=== PATIENT | male | born 1935 | race Caucasian/White ===

== ENCOUNTER 2019-02-12 14:02 | Inpatient (IN) | payer MEDICARE ==
--- NOTE | 2019-02-12 14:21 | ED ---
General Adult HPI - General Chief complaint: Recheck/Abnormal Lab/Rx Stated complaint: Abn labs Time Seen by Provider: 02/12/19 14:02 Source: patient, EMS, RN notes reviewed, old records reviewed Mode of arrival: EMS - History of Present Illness Initial comments: This is an 83-year-old male with past medical history significant for coronary artery disease and 2 stents and history of congestive heart today. Patient went to [facility] because his legs are swollen at [facility] he left AMA the first day and came back today because he had to get some things done at home. Patient still complained of swelling to his legs they did a troponin and it was mildly elevated looked at the chest x-ray showed congestive heart failure so they transferred the patient to [facility]. Patient denies any chest pain today or in the previous few weeks. Patient denies any shortness of breath. Patient's main concern is a swelling in the legs and the fact that he c annot get his shoes on. Patient denies any fever chills or cough. Patient denies any palpitations. Review of Systems ROS Statement: Those systems with pertinent positive or pertinent negative responses have been documented in the HPI. ROS Other: All systems not noted in ROS Statement are negative. Past Medical History Past Medical History: Heart Failure History of Any Multi-Drug Resistant Organisms: None Reported Past Surgical History: Heart Catheterization With Stent, Tonsillectomy Additional Past Surgical History / Comment(s): heart cath with stents in 2007 Past Psychological History: No Psychological Hx Reported Smoking Status: Never smoker Past Alcohol Use History: None Reported Past Drug Use History: None Reported General Exam - General Exam Comments Initial Comments: GENERAL: Patient is well-developed and well-nourished. Patient is nontoxic and well- hydrated and is in mild distress. ENT: Neck is soft and supple. No significant lymphadenopathy is noted. Oropharynx is clear. Moist mucous membranes. Neck has full range of motion without eliciting any pain. EYES: The sclera were anicteric and conjunctiva were pink and moist. Extraocular movements were intact and pupils were equal round and reactive to light. Eyelids were unremarkable. PULMONARY: Unlabored respirations. Good breath sounds bilaterally. No audible rales rhonchi or wheezing was noted. CARDIOVASCULAR: Patient has an irregular heart rate. ABDOMEN: Soft and nontender with normal bowel sounds. No palpable organomegaly was noted. There is no palpable pulsatile mass. SKIN: Skin is clear with no lesions or rashes and otherwise unremarkable. NEUROLOGIC: Patient is alert and oriented x3. Cranial nerves II through XII are grossly intact. Motor and sensory are also intact. Normal speech, volume and content. Symmetrical smile. MUSCULOSKELETAL: Normal extremities with adequate strength and full range of motion. She has 2+ edema bilaterally LYMPHATICS: No significant lymphadenopathy is noted PSYCHIATRIC: Normal psychiatric evaluation. Course Vital Signs 02/12/19 14:03 Temperature 99.4 F Pulse Rate 90 Respiratory 19 Rate Blood Pressure 125/97 O2 Sat by Pulse 95 Oximetry Medical Decision Making - Medical Decision Making EKG shows sinus rhythm with multiple PVCs at a rate of 92 bpm MA interval is 174 QRS is 124 QT interval 44 QTC is 499. No ST segment elevation seen. Disposition Clinical Impression: Pulmonary edema, Elevated troponin Disposition: ADMITTED IP TO THIS HOSP Referrals: None,Stated [Primary Care Provider] - 1-2 days Time of Disposition: 14:35
[2019-02-12] MEDS ORDERED: ASPIRIN 325 MG TAB PO STA (14:35)
[2019-02-12] MEDS: FUROSEMIDE 10 MG/ML 4 ML VIAL IV SCH ×2 (14:53→20:25)
--- NOTE | 2019-02-12 15:24 | XR ---
EXAMINATION TYPE: XR chest 2V DATE OF EXAM: 02/12/2019 COMPARISON: NONE HISTORY: Difficulty breathing bilateral lower extremity swelling TECHNIQUE: Frontal and lateral views of the chest are obtained. FINDINGS: The heart is enlarged. Bibasilar increased density is present, coronary artery calcificati ons are noted. There is no evident pneumothorax. Probable calcified nodule in the left upper lobe. Ce ntral vascularity and interstitium are increased. There are overlying cardiac leads. IMPRESSION: Correlate for congestive heart failure. There may be basilar effusions and associated ed danilo versus atelectasis. Follow-up suggested
[2019-02-12 16:18] LABS: Albumin 3.9 g/dL (3.5-5.0); Calcium 9.3 mg/dL (8.4-10.2); Potassium 4.8 mmol/L (3.5-5.1); Total Bilirubin 1.4 mg/dL (0.2-1.3); Total Protein 7.4 g/dL (6.3-8.2)
--- NOTE | 2019-02-12 17:17 | P.HPIM ---
History of Present Illness H&P Date: 02/12/19 Chief Complaint: lower extremity swelling the patient is a 84-year-old male with a past medical history of CAD with stenting 2 2007, essential hypertension and coronary artery disease who was transferred here to [facility] from [facility] in [facility] after presented there earlier today with chief complaint of lower extremity swelling. Apparently the patient has been having progressive worsening lower extremity swelling in the last 2 weeks noting swelling from his feet up to this ankles and just below his knees, the patient reports some dyspnea on exertion, he denies any chest pain or shortness of breath, he denies any cough subjective fevers chills or night sweats. The patient denies any paroxysmal nocturnal dyspnea , denies palpitations , denies focal weakness or slurred speech or facial droop. The patient does not regularly follow with with a doctor and reports last time he saw physician was over a year ago. He claims of the only medication he takes is baby aspirin daily. Apparently the patient presented to [facility] yesterday and then left AMA because he had some yardwork to complete. Serum sodium 140 serum potassium 4.3 serum bicarb 22 creatinine 1.2 WBC 6.34 Hematocrit was 16.1 platelets 184, patient is also noted to have elevated troponin at 0.048. patient was in have elevated blood pressure as high as 167/77 EKG showed sinus tachycardia with PVCs and left atrial enlargement. CXR bibsailar opacities with small pleural effusions. Patient was given a dose of Lasix and transferred here Review of Systems Pertinent positives per HPI all other review of system otherwise negative Past Medical History Past Medical History: Heart Failure History of Any Multi-Drug Resistant Organisms: None Reported Past Surgical History: Heart Catheterization With Stent, Tonsillectomy Additional Past Surgical History / Comment(s): heart cath with stents in 2007 Past Psychological History: No Psychological Hx Reported Smoking Status: Never smoker Past Alcohol Use History: None Reported Past Drug Use History: None Reported - Past Family History Father Family Medical History: Dementia Mother Family Medical History: Liver Disease Additional Family Medical History / Comment(s): Mother of hepatitis C at the age of 75yrs. Medications and Allergies Home Medications Medication Instructions Recorded Confirmed Type Aspirin EC [Ecotrin Low Dose] 81 mg PO DAILY 02/12/19 02/12/19 History Allergies Allergy/AdvReac Type Severity Reaction Status Date / Time No Known Allergies Allergy Unverified 02/12/19 14:45 Physical Exam Vitals: Vital Signs Temp Pulse Resp BP Pulse Ox 02/12/19 14:56 98.6 F 75 20 125/71 100 02/12/19 14:03 99.4 F 90 19 125/97 95 Intake and Output 02/12/19 02/12/19 02/12/19 06:59 14:59 22:59 Other: Weight 86.183 kg Constitutional: No acute distress, conversant, pleasant Eyes: Anicteric sclerae, moist conjunctiva, no lid-lag, PERRLA ENMT: NC/AT,Oropharynx clear, no erythema, exudates Neck:Supple, FROM, no masses, or JVD, No carotid bruits; No thyromegaly Lungs: Clear to auscultation, Clear to percussion, Normal respiratory effort, no accessory muscle use Cardiovascular: Heart regular in rate and rhythm, No murmurs, gallops, or rubs no peripheral edema Abdominal: Soft Nontender, nom distended, no guarding, no rebound or rigidity, Normoactive bowel sounds No hepatomegaly, No splenomegaly, No palpable mass No abdominal wall hernia noted Skin: Normal temperature, tone, texture, turgor, No induration No subcutaneous nodules, No rash, lesions, No ulcers Extremities:No digital cyanosis No clubbing, Pedal pulses intact and symmetrical Radial pulses intact and symmetrical Normal gait and station, No calf tenderness Psychiatric: Alert and oriented to person, place and time, Appropriate affect Intact judgement Neuro: Muscles Strength 5/5 in all 4 extremities, Sensation to light touch grossly present throughout, Cranial nerves II-XII grossly intact. No focal sensory deficits Results CBC & Chem 7: 02/12/19 14:05 Assessment and Plan Assessment: Assessment New onset CHF Hypertensive urgency Elevated troponin Coronary artery disease with history of stenting Plan: The patient is admitted anticipated greater than 2 midnight stay for likely new onset congestive heart failure after presenting with progressive worsening lower extremity edema, the patient was noted to have signs of volume overload on chest x-ray indicating CHF with pulmonary edema and does have a history of coronary disease with stenting in 2007, this also to have mildly elevated troponin and denies chest pain, we'll continue to cycle his troponins, will order a BMP, NT proBNP, TSH, 2-D echocardiogram with plans to consult cardiology, the patient is placed on strict I's and O's, daily weights and started on Lasix 40 mg IV q 12 for diuresis. We'll continue to monitor his electrolytes. The patient is noted to also have elevated blood pressure and started on lisinopril and Toprol-XL, I will continue to follow his clinical course. CODE STATUS full code Anticipated discharge: 2-[address]: Home Prophylaxis : SCDs and heparinscds
[2019-02-12] MEDS: LISINOPRIL 20 MG TAB PO SCH (17:56)
[2019-02-12] MEDS: NITROGLYCERIN OINT 1 INCH/GM PACKET TOPICAL SCH ×2 (18:04→20:20)
[2019-02-12] MEDS: ATORVASTATIN 20 MG TAB PO SCH (20:25)
[2019-02-12] MEDS: HEPARIN SODIUM,PORCINE 5,000 UNIT/ML 1 ML VIAL SQ SCH (23:22)
[2019-02-13 06:19] LABS: Basophils # (A) 0.1 k/uL (0-0.2); Basophils % (A) 2 %; Eosinophils # (A) 0.1 k/uL (0-0.7); Eosinophils % (A) 2 %; HCT 47.1 % (39.0-53.0); HGB 14.9 gm/dL (13.0-17.5); Lymphocytes # (A) 1.4 k/uL (1.0-4.8); Lymphocytes % (A) 21 %; MCH 30.2 pg (25.0-35.0); MCHC 31.5 g/dL (31.0-37.0); MCV 95.7 fL (80.0-100.0); Monocytes # (A) 0.6 k/uL (0-1.0); Monocytes % (A) 9 %; Neutrophils # (A) 4.2 k/uL (1.3-7.7); Neutrophils % (A) 64 %; Platelet Count 162 k/uL (150-450); RBC 4.92 m/uL (4.30-5.90); RDW 13.8 % (11.5-15.5); WBC 6.6 k/uL (3.8-10.6)
[2019-02-13 06:33] LABS: Calcium 8.7 mg/dL (8.4-10.2); Potassium 3.9 mmol/L (3.5-5.1)
[2019-02-13] MEDS: METOPROLOL SUCCINATE (ER) 25 MG TAB.ER.24H PO SCH (08:21)
[2019-02-13] MEDS: LISINOPRIL 20 MG TAB PO SCH (08:21)
[2019-02-13] MEDS: HEPARIN SODIUM,PORCINE 5,000 UNIT/ML 1 ML VIAL SQ SCH ×3 (08:21→23:23)
[2019-02-13] MEDS: FUROSEMIDE 10 MG/ML 4 ML VIAL IV SCH ×2 (08:21→20:49)
[2019-02-13] MEDS: NITROGLYCERIN OINT 1 INCH/GM PACKET TOPICAL SCH ×4 (08:22→20:49)
[2019-02-13] MEDS ORDERED: ASPIRIN 325 MG TAB PO SCH (09:00)
--- NOTE | 2019-02-13 09:41 | XR ---
EXAMINATION TYPE: XR chest 2V DATE OF EXAM: 02/13/2019 COMPARISON: 02/12/2019 TECHNIQUE: PA and lateral views submitted. HISTORY: Shortness of breath FINDINGS: Bilateral consolidation and pleural effusion noted. There is a granuloma in the left upper lobe. Hear t is normal in size. No overt failure. Hypertrophic and degenerative change of the spine. IMPRESSION: Improving interstitium suggestive of resolving degenerative. Persistent bilateral infiltr ate and pleural effusion.
[2019-02-13 12:40] LABS: Creatine Kinase MB 1.3 ng/mL (0.0-2.4)
[2019-02-13 12:49] LABS: Troponin I 0.051 ng/mL (0.000-0.034)
--- NOTE | 2019-02-13 13:13 | P.CRDCN ---
History of Present Illness Consult date: 02/13/19 Requesting physician: Maria Teresa Estes Consult reason: congestive heart failure Chief complaint: Bilateral lower extremity edema History of present illness: This is an 83-year-old gentleman with history of coronary artery disease, he states that he underwent angioplasty and stent placement of the mid and proximal LAD in 2007, patient used to see Dr. Davila in the office at that time, history of hypertension, hyperlipidemia. Patient presented to [facility] with symptoms of bilateral lower extremity edema which the patient states has been increasingly getting worse over the past 2 weeks. He denies any overt shortness of breath, just states that the swelling in his lower ex tremities has been getting worse. Chest x-ray was performed at [facility], findings which may reflect underlying pneumonia however a component of congestive heart failure is difficult to exclude. Patient apparently had been to [facility] a couple days prior and signed out AGAINST MEDICAL ADVICE because he had things to do. Lab tests that were performed there, the sodium is 140, potassium 4.7, BUN 19, creatinine 1, ESR 76, white blood cell count 6.3, hemoglobin 16, platelet count 172. Magnesium level I.9. Patient was transferred to [facility] for further care. Blood pressure 132/60 with a heart rate in the 50s, 92% on room air. Afebrile. Blood cell count 6.6, hemoglobin 14.9, platelet count 162. Sodium 142, potassium 3.9, BUN 28, creatinine 1.2. Troponin 0.050, 0.060, 0.051. TSH level 3.6. Past Medical History Past Medical History: Heart Failure Additional Past Medical History / Comment(s): Skin cancer with removals, constipation, pt states he does not get chest pain-he gets L arm pain History of Any Multi-Drug Resistant Organisms: None Reported Past Surgical History: Heart Catheterization With Stent, Tonsillectomy Additional Past Surgical History / Comment(s): heart cath with stents in 2007 Past Anesthesia/Blood Transfusion Reactions: No Reported Reaction Date of Last Stent Placement:: 2007 Past Psychological History: No Psychological Hx Reported Smoking Status: Never smoker Past Alcohol Use History: None Reported Past Drug Use History: None Reported - Past Family History Father Family Medical History: Dementia Mother Family Medical History: Liver Disease Additional Family Medical History / Comment(s): Mother of hepatitis C at the age of 75yrs. Medications and Allergies Home Medications Medication Instructions Recorded Confirmed Type Aspirin EC [Ecotrin Low Dose] 81 mg PO DAILY 02/12/19 02/12/19 History Allergies Allergy/AdvReac Type Severity Reaction Status Date / Time No Known Allergies Allergy Unverified 02/12/19 14:45 Physical Exam Vitals: Vital Signs Temp Pulse Pulse Resp BP BP Pulse Ox 02/13/19 11:41 98 F 52 L 18 132/66 92 L 02/13/19 11:39 63 02/13/19 08:00 97.9 F 63 18 163/91 94 L 02/13/19 07:33 50 L 02/13/19 04:29 98 F 50 L 18 110/64 92 L 02/12/19 23:44 76 18 117/55 91 L 02/12/19 20:25 78 18 141/65 91 L 02/12/19 17:59 97.7 F 50 L 18 191/87 92 L 02/12/19 16:55 74 18 132/88 94 L 02/12/19 14:56 98.6 F 75 20 125/71 100 02/12/19 14:03 99.4 F 90 19 125/97 95 Intake and Output 02/12/19 02/13/19 02/13/19 22:59 06:59 14:59 Intake Total 240 Output Total 650 Balance -410 Intake: Oral 240 Output: Urine 650 Other: # Voids 2 Weight 86.6 kg 84.9 kg PHYSICAL EXAMINATION: GENERAL: 83-year-old gentleman in no acute distress at the time of my examination HEENT: Head is atraumatic, normocephalic. Pupils equal, round. Sclera anicteric. Conjunctiva are clear. Mucous membranes of the mouth are moist. Neck is supple. There is elevated jugular venous pressure. No carotid bruit is heard. HEART EXAMINATION: S1 and S2 1 systolic murmur is heard CHEST EXAMINATION: Lungs reveal diminished air entry to bilateral bases ABDOMEN: Soft, nontender. Bowel sounds are heard. No organomegaly noted. EXTREMITIES: 2+ peripheral pulses with trace to 1+ evidence of peripheral edema and no calf tenderness noted. NEUROLOGIC patient is awake, alert and oriented 2 . . Results 02/13/19 05:11 02/13/19 05:11 Cardiac Enzymes 1102/12/19 02/13/19 Range/Units 14:05 14:05 01:50 AST 43 (17-59) U/L Troponin I 0.050 H* 0.060 H* (0.000-0.034) ng/mL Lipids 02/13/19 Range/Units 05:11 Triglycerides 73 (<150) mg/dL Cholesterol 133 (<200) mg/dL HDL Cholesterol 27 L (40-60) mg/dL CBC 02/13/19 Range/Units 05:11 WBC 6.6 (3.8-10.6) k/uL RBC 4.92 (4.30-5.90) m/uL Hgb 14.9 (13.0-17.5) gm/dL Hct 47.1 (39.0-53.0) % Plt Count 162 (150-450) k/uL Comprehensive Metabolic Panel 02/12/19 02/13/19 Range/Units 14:05 05:11 Sodium 142 142 (137-145) mmol/L Potassium 4.8 3.9 (3.5-5.1) mmol/L Chloride 108 H 105 (98-107) mmol/L Carbon Dioxide 26 29 (22-30) mmol/L BUN 22 H 28 H (9-20) mg/dL Creatinine 1.12 1.28 H (0.66-1.25) mg/dL Glucose 108 H 92 (74-99) mg/dL Calcium 9.3 8.7 (8.4-10.2) mg/dL AST 43 (17-59) U/L ALT 36 (21-72) U/L Alkaline Phosphatase 104 (38-126) U/L Total Protein 7.4 (6.3-8.2) g/dL Albumin 3.9 (3.5-5.0) g/dL Current Medications Generic Name Dose Route Start Last Admin Trade Name Freq PRN Reason Stop Dose Admin Aspirin 325 mg 02/13/19 09:00 02/13/19 08:21 Aspirin PO 325 mg DAILY NATIVIDAD Administration Atorvastatin Calcium 20 mg 02/12/19 21:00 02/12/19 20:25 Lipitor PO 20 mg HS NATIVIDAD Administration Furosemide 40 mg 02/12/19 14:45 02/13/19 08:21 Lasix IV 40 mg Q12HR NATIVIDAD Administration Heparin Sodium (Porcine) 5,000 unit 02/13/19 00:00 02/13/19 08:21 Heparin SQ 5,000 unit Q8HR NATIVIDAD Administration Lisinopril 40 mg 02/12/19 16:00 02/13/19 08:21 Zestril PO 40 mg DAILY NATIVIDAD Administration Metoprolol Succinate 25 mg 02/13/19 09:00 02/13/19 08:21 Toprol Xl PO 25 mg DAILY NATIVIDAD Administration Nitroglycerin 1 inch 02/12/19 18:00 02/13/19 12:00 Nitro-Bid Oint TOPICAL Not Given QID NATIVIDAD Intake and Output 02/12/19 02/13/19 02/13/19 22:59 06:59 14:59 Intake Total 240 Output Total 650 Balance -410 Intake: Oral 240 Output: Urine 650 Other: # Voids 2 Weight 86.6 kg 84.9 kg Patient Weight 02/14/19 06:59 Weight 84.9 kg 02/13/19 05:11 02/13/19 05:11 EKG Interpretations (text) EKG shows a sinus rhythm with sinus arrhythmia, PVCs Assessment and Plan Plan: Assessment and plan #1 congestive heart failure, LV function unknown #2 known history of coronary artery disease with prior LAD stenting in 2007 #3 hypertensive urgency #4 abnormal troponin, no significant rise and fall pattern, not suggestive of acute coronary syndrome #5 dementia Plan We'll obtain an echocardiogram with Doppler study. Discontinue to diurese the patient with IV Lasix, decrease aspirin to 81 mg daily, continue lisinopril, metoprolol, and statin. Monitor intake and output along with daily weights and daily lytes BUN and creatinine. DNP note has been reviewed, I agree with a documented findings and plan of care. Patient was seen and examined.
[2019-02-13 14:28] VITALS: BMI 29.2
--- NOTE | 2019-02-13 17:08 | P.PN ---
Subjective Progress Note Date: 02/13/19 Principal diagnosis: Possible CHF exacerbation Patient was seen and examined. No acute events overnight. Patient reports considerable improvement in his breathing since admission. He continues to complain of lower derick swelling, though improved since admission. He denies any chest pain or palpitations. No nausea or vomiting. No fever or chills. Objective - Vital Signs Vital signs: Vital Signs Temp 98 F 02/13/19 11:41 Pulse 52 L 02/13/19 11:41 Resp 18 02/13/19 11:41 BP 132/66 02/13/19 11:41 Pulse Ox 92 L 02/13/19 11:41 Intake & Output 02/12/19 02/13/19 02/13/19 18:59 06:59 18:59 Intake Total 240 240 Output Total 650 Balance -410 240 Weight 86.6 kg 84.9 kg Intake: Oral 240 240 Output: Urine 650 Other: # Voids 2 - Exam General: [non toxic], [no distress], [appears at stated age] Derm: [warm], [dry] Head: [atraumatic], [normocephalic], [symmetric] Eyes: [EOMI], [no lid lag], [anicteric sclera] Mouth: [no lip lesion], [mucus membranes moist] Cardiovascular: [S1S2 reg], [no murmur], [positive posterior tibial pulse bilateral], Lungs: [CTA bilateral], [no rhonchi, no rales] , [no accessory muscle use] Abdominal: [soft], [ nontender to palpation], [no guarding], [no appreciable organomegaly] Ext: [no gross muscle atrophy], [2+ pitting lower extremity edema], [no contractures] Neuro: [no focal neuro deficits] Psych: [Alert], [oriented], [appropriate affect] - Labs CBC & Chem 7: 02/13/19 05:11 02/13/19 05:11 Labs: Abnormal Lab Results - Last 24 Hours (Table) 02/13/19 02/13/19 02/13/19 Range/Units 01:50 05:11 11:31 BUN 28 H (9-20) mg/dL Creatinine 1.28 H (0.66-1.25) mg/dL Troponin I 0.060 H* 0.051 H* (0.000-0.034) ng/mL HDL Cholesterol 27 L (40-60) mg/dL Assessment and Plan Assessment: Assessment and plan Congestive heart failure, LV function unknown CAD with history of LAD stenting in 2007 Troponin elevation likely troponin leak from CHF Acute kidney injury BNP 7360, most recent chest x-ray shows improved interstitial. Plans: Start Lasix 40 mg IV twice a day. Strict intake and output. Daily weights. Follow cardiology consultation. Follow-up echocardiogram. Plans: Start aspirin and Lipitor. Start beta selena. Follow cardiology consultation. Troponin 0.05, 0.06, 0.051. Likely leak from CHF. Plans: Acute coronary syndrome has been ruled out. Management as above. Cranium 1.28. Likely due to Lasix use. Plans: Repeat BMP in the morning. Avoid nephrotoxins. [Patient admitted for likely CHF exacerbation. Continue IV diuresis. Cardiology is on board. Likely DC in 1-2 days.]
[2019-02-13] MEDS: ATORVASTATIN 20 MG TAB PO SCH (20:49)
[2019-02-14] MEDS ORDERED: MAGNESIUM SULFATE-D5W PMX 1 GM in DEXTROSE/WATER 1 100ML.BAG IVPB ONE (02:44)
--- NOTE | 2019-02-14 06:49 | ECHOF ---
Referral Reason:Heart Failure MEASUREMENTS -------- HEIGHT: 170.2 cm WEIGHT: 86.2 kg BP: 125/71 RVIDd: 4.4 cm (< 3.3) IVSd: 1.4 cm (0.6 - 1.1) LVIDd: 5.0 cm (3.9 - 5.3) LVPWd: 1.6 cm (0.6 - 1.1) IVSs: 1.7 cm LVIDs: 4.4 cm LVPWs: 1.9 cm LAESV Index (A-L): 65.14 ml/m Ao Diam: 3.3 cm (2.0 - 3.7) AV Cusp: 1.8 cm (1.5 - 2.6) LA Diam: 4.7 cm (2.7 - 3.8) MV E Ton: 0.86 m/s MV DecT: 178 ms MV A Ton: 0.69 m/s MV E/A Ratio: 1.24 RAP: 5.00 mmHg RVSP: 52.97 mmHg FINDINGS -------- Sinus rhythm with extra systolic beats. This was a technically difficult study with suboptimal parasternal views. The left ventricle is mildly dilated. There is moderate concentric left ventricular hypertrophy. There is severe global hypokinesis of LV . Overall left ventricular systolic function is severely i mpaired with, an EF between 20 - 25 %. The diastolic filling pattern is normal for the age of the p atient 15.76. Increased LAP Grade 3 Diastolic Dysfunction. The right ventricle is mildly enlarged. LA is severely dilated >40 ml/m2 The right atrial size is normal. 1.5mg of Definity was utilized for enhancement of images Interatrial and interventricular septum intact. The aortic valve is trileaflet and appears structurally normal. There is mild aortic valve sclerosi s. There is no evidence of aortic regurgitation. There is no evidence of aortic stenosis. [id number] mitral regurgitation is present. Moderate to severe tricuspid regurgitation present. There is moderate to severe pulmonary hypertens ion. The right ventricular systolic pressure, as measured by Doppler, is 52.97mmHg. There is no pulmonic regurgitation present. The aortic root size is normal. IVC Not well visulized, due to Pt. Obesity. There is no pericardial effusion. CONCLUSIONS -------- 1. Sinus rhythm with extra systolic beats. 2. This was a technically difficult study with suboptimal parasternal views. 3. The left ventricle is mildly dilated. 4. There is moderate concentric left ventricular hypertrophy. 5. There is severe global hypokinesis of LV . 6. The diastolic filling pattern is normal for the age of the patient 15.76 7. Increased LAP Grade 3 Diastolic Dysfunction. 8. The right ventricle is mildly enlarged. 9. LA is severely dilated >40 ml/m2 10. The right atrial size is normal. 11. 1.5mg of Definity was utilized for enhancement of images 12. Interatrial and interventricular septum intact. 13. The aortic valve is trileaflet and appears structurally normal. 14. There is mild aortic valve sclerosis. 15. There is no evidence of aortic regurgitation. 16. There is no evidence of aortic stenosis. 17. [id number] mitral regurgitation is present. 18. Moderate to severe tricuspid regurgitation present. 19. There is moderate to severe pulmonary hypertension. 20. The right ventricular systolic pressure, as measured by Doppler, is 52.97mmHg. 21. There is no pulmonic regurgitation present. 22. The aortic root size is normal. 23. IVC Not well visulized, due to Pt. Obesity. 24. There is no pericardial effusion. [employer]: Chanda Claros RDCS
[2019-02-14] MEDS: HEPARIN SODIUM,PORCINE 5,000 UNIT/ML 1 ML VIAL SQ SCH ×3 (08:26→22:33)
[2019-02-14] MEDS: METOPROLOL SUCCINATE (ER) 25 MG TAB.ER.24H PO SCH (08:28)
[2019-02-14] MEDS: ASPIRIN 81 MG PO SCH (08:28)
[2019-02-14] MEDS: NITROGLYCERIN OINT 1 INCH/GM PACKET TOPICAL SCH ×4 (08:32→22:34)
[2019-02-14] MEDS: LISINOPRIL 20 MG TAB PO SCH (08:32)
[2019-02-14] MEDS: FUROSEMIDE 10 MG/ML 4 ML VIAL IV SCH ×2 (08:41→20:21)
[2019-02-14 08:48] LABS: Calcium 9.5 mg/dL (8.4-10.2); Magnesium 2.1 mg/dL (1.6-2.3); Potassium 4.2 mmol/L (3.5-5.1)
--- NOTE | 2019-02-14 11:39 | P.PN ---
Subjective Progress Note Date: 02/14/19 Principal diagnosis: CHF exacerbation Patient was seen and examined. No acute events overnight. Patient reports no changes in breathing since yesterday. He continues to complain of lower extremity swelling, though significantly improved since admission. He denies any chest pain or palpitations. No nausea or vomiting. No fever or chills. Objective - Vital Signs Vital signs: Vital Signs Temp 98.2 F 02/14/19 07:47 Pulse 68 02/14/19 07:47 Resp 18 02/14/19 08:00 BP 139/69 02/14/19 07:47 Pulse Ox 94 L 02/14/19 07:53 Intake & Output 02/13/19 02/14/19 02/14/19 18:59 06:59 18:59 Intake Total 240 240 240 Output Total 200 Balance 240 240 40 Weight 84.9 kg 83.8 kg Intake: Oral 240 240 240 Output: Urine 200 Other: Voiding Method Urinal - Exam General: [non toxic], [no distress], [appears at stated age] Derm: [warm], [dry] Head: [atraumatic], [normocephalic], [symmetric] Eyes: [EOMI], [no lid lag], [anicteric sclera] Mouth: [no lip lesion], [mucus membranes moist] Cardiovascular: [S1S2 reg], [no murmur], [positive posterior tibial pulse bilateral], Lungs: [CTA bilateral], [no rhonchi, no rales] , [no accessory muscle use] Abdominal: [soft], [ nontender to palpation], [no guarding], [no appreciable organomegaly] Ext: [no gross muscle atrophy], [2+ pitting lower extremity edema], [no contractures] Neuro: [no focal neuro deficits] Psych: [Alert], [oriented], [appropriate affect] - Labs CBC & Chem 7: 02/13/19 05:11 02/14/19 07:52 Labs: Abnormal Lab Results - Last 24 Hours (Table) 02/13/19 02/14/19 Range/Units 11:31 07:52 Carbon Dioxide 37 H (22-30) mmol/L BUN 33 H (9-20) mg/dL Creatinine 1.39 H (0.66-1.25) mg/dL Glucose 113 H (74-99) mg/dL Troponin I 0.051 H* (0.000-0.034) ng/mL Assessment and Plan Assessment: Assessment and plan Congestive heart failure, EF 20-25% CAD with history of LAD stenting in 2007 Troponin elevation likely troponin leak from CHF Acute kidney injury BNP 7360, most recent chest x-ray shows improved interstitial. Echocardiogram showing EF 20-25% with hypokinetic LV. Plans: Start Lasix 40 mg IV twice a day. Strict intake and output. Daily weights. Follow cardiology consultation. Plans: Start aspirin and Lipitor. Start beta selena. Follow cardiology consultation. Troponin 0.05, 0.06, 0.051. Likely leak from CHF. Plans: Acute coronary syndrome has been ruled out. Management as above. Cranium 1.39. Likely due to Lasix use. Plans: Repeat BMP in the morning. Avoid nephrotoxins. [Patient admitted for likely CHF exacerbation. Patient would benefit from 1 more day of diuresis. Repeat chest x-ray tomorrow morning. Possible transition to oral Lasix tomorrow. Likely DC in 1-2 days.]
--- NOTE | 2019-02-14 14:44 | P.PN ---
Subjective Progress Note Date: 02/14/19 This is an 83-year-old gentleman with history of coronary artery disease, he states that he underwent angioplasty and stent placement of the mid and proximal LAD in 2007, patient used to see Dr. Davila in the office at that time, history of hypertension, hyperlipidemia. Patient presented to [facility] with symptoms of bilateral lower extremity edema which the patient states has been increasingly getting worse over the past 2 weeks. He denies any overt shortness of breath, just states that the swelling in his lower extremities has been getting worse. Chest x-ray was performed at [facility], findings which may reflect underlying pneumonia however a component of congestive heart failure is difficult to exclude. Patient apparently had been to [facility] a couple days prior and signed out AGAINST MEDICAL ADVICE because he had things to do. Lab tests that were performed there, the sodium is 140, potassium 4.7, BUN 19, creatinine 1, ESR 76, white blood cell count 6.3, hemoglobin 16, platelet count 172. Magnesium level I.9. Patient was transferred to [facility] for further care. Blood pressure 132/60 with a heart rate in the 50s, 92% on room air. Afebrile. Blood cell count 6.6, hemoglobin 14.9, platelet count 162. Sodium 142, potassium 3.9, BUN 28, creatinine 1.2. Troponin 0.050, 0.060, 0.051. TSH level 3.6. 02/14 2019 Patient was seen and examined this morning, continues to diurese well on IV Lasix. Echocardiogram with Doppler study was performed which revealed an ejection fraction of 20-25% with moderate to severe MR and TR. Patient was also noted to have 2 separate runs of 70 beats nonsustained ventricular tachycardia through the night last night. His weight today is down 3 kg. Blood pressure 130/60 with a heart rate of 70, 90% on room air. Sodium 144, potassium 4.2, BUN 33 and creatinine 1.3. We'll continue current dose of IV Lasix, patient is also on metoprolol, lisinopril, aspirin, and Nitropaste. We will add Aldactone 25 mg daily to the patient's medication regime. Objective - Vital Signs Vital signs: Vital Signs Temp 96.9 F L 02/14/19 11:50 Pulse 72 02/14/19 11:50 Resp 18 02/14/19 11:50 BP 131/60 02/14/19 11:50 Pulse Ox 98 02/14/19 11:50 Intake & Output 02/13/19 02/14/19 02/14/19 18:59 06:59 18:59 Intake Total 240 240 480 Output Total 200 Balance 240 240 280 Weight 84.9 kg 83.8 kg Intake: Oral 240 240 480 Output: Urine 200 Other: Voiding Method Urinal - Exam PHYSICAL EXAMINATION: GENERAL: 83-year-old gentleman in no acute distress at the time of my examination HEENT: Head is atraumatic, normocephalic. Pupils equal, round. Sclera a nicteric. Conjunctiva are clear. Mucous membranes of the mouth are moist. Neck is supple. There is elevated jugular venous pressure. No carotid bruit is heard. HEART EXAMINATION: S1 and S2 1 systolic murmur is heard CHEST EXAMINATION: Lungs reveal diminished air entry to bilateral bases ABDOMEN: Soft, nontender. Bowel sounds are heard. No organomegaly noted. EXTREMITIES: 2+ peripheral pulses with trace to 1+ evidence of peripheral edema and no calf tenderness noted. NEUROLOGIC patient is awake, alert and oriented 2 . . - Labs CBC & Chem 7: 02/13/19 05:11 02/14/19 07:52 Labs: Abnormal Lab Results - Last 24 Hours (Table) 02/14/19 Range/Units 07:52 Carbon Dioxide 37 H (22-30) mmol/L BUN 33 H (9-20) mg/dL Creatinine 1.39 H (0.66-1.25) mg/dL Glucose 113 H (74-99) mg/dL Assessment and Plan Plan: Assessment and plan #1 congestive heart failure, LV function unknown #2 known history of coronary artery disease with prior LAD stenting in 2007 #3 hypertensive urgency #4 abnormal troponin, no significant rise and fall pattern, not suggestive of acute coronary syndrome #5 dementia Plan Echocardiogram with Doppler study was performed which revealed an ejection fraction of 20-25%, moderate to severe MR and TR. Aldactone was added to the 's medication regime. We will continue aspirin 81 mg daily, Lipitor 20 mg daily, Lasix 40 mg IV twice a day, lisinopril 40 mg daily, and metoprolol. Repeat chest x-ray in the morning. DNP note has been reviewed, I agree with a documented findings and plan of care. Patient was seen and examined.
--- NOTE | 2019-02-14 15:19 | CDI ---
Documentation Clarification Form Date: 02/14/2019 3:08:38 PM From: Rekha Alexander RN, CCDS Admit Date: 02/12/2019 2:36:00 PM Patient Name: Yosef Abbasi Visit Number: [id number] ATTENTION: The Clinical Documentation Specialists (CDI) and [facility] Coding Staff appreciate your assistance in clarifying documentation. Please respond to the clarification below the line at the bottom and electronically sign. The CDI & [facility] Coding staff will review the response and follow-up if needed. Please note: Queries are made part of the Legal Health Record. If you have any questions, please contact the author of this message via ITS. Dr. Davida Valente CHF is documented in the H&P, Consults, and progress Notes and requires further specificity. History/Risk Factors: CHF, heart cath w stent Clinical Indicators: 02/14 Cardiology Progress Note: "Echocardiogram with Doppler study was performed which revealed an ejection fraction of 20-25% with moderate to severe MR and TR. We'll continue current dose of IV Lasix, patient is also on metoprolol, lisinopril, aspirin, and Nitropaste. We will add Aldactone 25 mg daily to the patient's medication regime." VS/Pulse OX: Temp 99.4, HR 90, RR 19, B/P 125/97, spo2 95% 2l NC BNP: 70290 02/12/19 Echocardiogram Results: EF 20-25 %. Left ventricle is mildly dilated, severe global hypokinesis of LV 02/13 Chest x ray: "Improving interstitium suggestive of resolving degenerative. Persistent bilateral infiltrate and pleural effusion." Treatment: IVP Lasix Q 12 hrs, Nitro paste 1 in QID Toprol XL 25 mg PO BID Aldactone 81 mg PO BID In your professional opinion, can you please clarify the acuity and type of CHF if known? Systolic Heart Failure: Acute Chronic Acute on Chronic Diastolic Heart Failure: Acute Chronic Acute on Chronic Systolic & Diastolic Heart Failure: Acute Chronic Acute on Chronic Heart Failure Unable to Determine Other, please specify (Last Revision: June 2017) acute systolic chf exacerbation MTDD
[2019-02-14] MEDS: MAGNESIUM HYDROXIDE 2,400 MG/10 ML CUP PO PRN (17:34)
[2019-02-14] MEDS: DOCUSATE 100 MG CAP PO SCH (20:18)
[2019-02-14] MEDS: ATORVASTATIN 20 MG TAB PO SCH (20:18)
--- NOTE | 2019-02-15 07:45 | XR ---
EXAMINATION TYPE: XR chest 2V DATE OF EXAM: 02/15/2019 COMPARISON: Prior chest x-ray 02/13/2019 HISTORY: Congestive heart failure TECHNIQUE: Frontal and lateral views of the chest are obtained. FINDINGS: There is persistent blunting of the right costophrenic angle, some improvement is noted at the left costophrenic angle. Heart remains enlarged. Nodular density in the left midlung is again se en, there are overlying cardiac leads. Interstitium mildly increased. IMPRESSION: Suspect some improvement in aeration at the left lung base. Persistent pleural effusion. Cardiomegaly. Indeterminate lung nodule.
[2019-02-15] MEDS: HEPARIN SODIUM,PORCINE 5,000 UNIT/ML 1 ML VIAL SQ SCH (08:12)
[2019-02-15] MEDS: ASPIRIN 81 MG PO SCH (08:14)
[2019-02-15] MEDS: DOCUSATE 100 MG CAP PO SCH (08:15)
[2019-02-15] MEDS: LISINOPRIL 20 MG TAB PO SCH (08:16)
[2019-02-15] MEDS: METOPROLOL SUCCINATE (ER) 25 MG TAB.ER.24H PO SCH (08:17)
[2019-02-15] MEDS: NITROGLYCERIN OINT 1 INCH/GM PACKET TOPICAL SCH ×2 (08:19→11:12)
[2019-02-15] MEDS ORDERED: SPIRONOLACTONE 25 MG TAB PO SCH (09:00)
[2019-02-15] MEDS: FUROSEMIDE 10 MG/ML 4 ML VIAL IV SCH (10:07)
--- NOTE | 2019-02-15 10:54 | P.PN ---
Subjective Progress Note Date: 02/15/19 Principal diagnosis: CHF exacerbation Patient was seen and examined. No acute events overnight. Patient reports no changes in breathing since yesterday. He continues to complain of lower extremity swelling, though significantly improved since admission. Saturating low 90 on room air. Had episodes of nonsustained V. tach yesterday. He denies any chest pain or palpitations. No nausea or vomiting. No fever or chills. Has lost about 4 kg since admission. Good urine output. Objective - Vital Signs Vital signs: Vital Signs Temp 97.9 F 02/15/19 07:10 Pulse 58 L 02/15/19 07:10 Resp 18 02/15/19 08:00 BP 136/66 02/15/19 07:10 Pulse Ox 92 L 02/15/19 07:10 Intake & Output 02/14/19 02/15/19 02/15/19 18:59 06:59 18:59 Intake Total 720 240 Output Total 200 450 Balance 520 -450 240 Weight 82.4 kg Intake: Oral 720 240 Output: Urine 200 450 Other: Voiding Method Toilet Toilet Urinal Urinal Urinal # Voids 2 2 # Bowel Movements 0 - Exam General: [non toxic], [no distress], [appears at stated age] Derm: [warm], [dry] Head: [atraumatic], [normocephalic], [symmetric] Eyes: [EOMI], [no lid lag], [anicteric sclera] Mouth: [no lip lesion], [mucus membranes moist] Cardiovascular: [S1S2 reg], [no murmur], [positive posterior tibial pulse bilateral], Lungs: [CTA bilateral], [no rhonchi, no rales] , [no accessory muscle use] Abdominal: [soft], [ nontender to palpation], [no guarding], [no appreciable organomegaly] Ext: [no gross muscle atrophy], [1+ pitting lower extremity edema], [no contractures] Neuro: [no focal neuro deficits] Psych: [Alert], [oriented], [appropriate affect] - Labs CBC & Chem 7: 02/13/19 05:11 02/14/19 07:52 Assessment and Plan Assessment: Assessment and plan Congestive heart failure, EF 20-25% Nonsustained V. tach Metabolic alkalosis CAD with history of LAD stenting in 2007 Troponin elevation likely troponin leak from CHF Acute kidney injury BNP 7360, most recent chest x-ray shows improved interstitial. Echocardiogram showing EF 20-25% with hypokinetic LV. Plans: Start Lasix 40 mg IV twice a day. Strict intake and output. Daily weights. Follow cardiology consultation. As seen on telemetry. Plans: Continue telemetry monitoring. Continue beta selena. Aldactone added by cardiology. Follow cardiology recommendations. HCO3 37. Likely due to Lasix use. Plans: Repeat BMP in the morning. Plans: Start aspirin and Lipitor. Start beta selena. Follow cardiology consultation. Troponin 0.05, 0.06, 0.051. Likely leak from CHF. Plans: Acute coronary syndrome has been ruled out. Management as above. Cranium 1.39. Likely due to Lasix use. Plans: Repeat BMP in the morning. Avoid nephrotoxins. [Patient admitted for likely CHF exacerbation. Having nonsustained V. tach on telemetry. Will continue to monitor the patient. Cardiology on board. He is pending clinical improvement. Likely DC in 1-2 days. ]
[2019-02-15 11:10] VITALS: BP 124/74; PULSE 63; RESP 20; TEMP 97.7
[2019-02-15] MEDS: MAGNESIUM HYDROXIDE 2,400 MG/10 ML CUP PO PRN (11:15)
[2019-02-15 11:18] LABS: Calcium 8.8 mg/dL (8.4-10.2); Magnesium 2.1 mg/dL (1.6-2.3)
--- NOTE | 2019-02-15 12:44 | P.PN ---
Subjective Progress Note Date: 02/15/19 Principal diagnosis: Congestive heart failure secondary to systolic dysfunction This is a very pleasant 81-year-old gentleman who sees Dr. Davila in the office on regular basis with a past medical history significant for coronary artery disease and prior stenting of the LAD, hypertension, dyslipidemia, was admitted to the hospital with congestive heart failure exacerbation of unknown etiology with a predominantly right heart failure and lower extremities edema. The echo yesterday was performed and revealed impaired LV function was EF around 25-30% with moderate to severe MR and moderate to severe TR. The patient was seen this morning. Overall he is feeling better. The lower extremities edema has improved significantly. He still have very mild edema. The chest is clear on examination. He denies any symptoms of chest pain or chest discomfort. The creatinine is a stable. He did have short runs of nonsustained V. tach. He is on [facility] treatment. From a perivascular standpoint overview, the patient can be discharged home Objective - Vital Signs Vital signs: Vital Signs Temp 97.7 F 02/15/19 11:10 Pulse 63 02/15/19 11:10 Resp 20 02/15/19 11:10 BP 124/74 02/15/19 11:10 Pulse Ox 95 02/15/19 11:10 Intake & Output 02/14/19 02/15/19 02/15/19 18:59 06:59 18:59 Intake Total 720 240 Output Total 200 450 Balance 520 -450 240 Weight 82.4 kg Intake: Oral 720 240 Output: Urine 200 450 Other: Voiding Method Toilet Toilet Urinal Urinal Urinal # Voids 2 2 1 # Bowel Movements 0 - Constitutional General appearance: Present: no acute distress - Respiratory Respiratory: bilateral: CTA - Cardiovascular Rhythm: regular Heart sounds: normal: S1, S2 Abnormal Heart Sounds: Present: systolic murmur - Labs CBC & Chem 7: 02/13/19 05:11 02/15/19 10:34 Labs: Abnormal Lab Results - Last 24 Hours (Table) 02/15/19 Range/Units 10:34 Carbon Dioxide 34 H (22-30) mmol/L BUN 41 H (9-20) mg/dL Creatinine 1.34 H (0.66-1.25) mg/dL Glucose 102 H (74-99) mg/dL Assessment and Plan Assessment: Assessment #1 congestive heart failure exacerbation secondary to systolic dysfunction #2 severe cardiomyopathy #3 valvular heart disease with mitral and tricuspid regurgitation #4 mildly abnormal enzymes #5 multiple comorbid conditions #6 underlying dementia Plan #1 continue the current medical regimen #2 the patient was switched to by mouth Lasix earlier today #3 he seems to be euvolemic besides very mild lower extremities edema #4 the creatinine seems to be stable #5 continue [facility] treatment #6 the patient can be discharged home
[2019-02-15] MEDS ORDERED: FUROSEMIDE 40 MG TAB PO SCH (16:00)
--- NOTE | 2019-02-19 16:56 | P.DS ---
Providers Date of admission: 02/12/19 14:36 Expected date of discharge: 02/15/19 Attending physician: Maria Teresa Estes DO Consults: 02/12/19 14:35 Consult Physician Routine Consulting Provider: [facility] Consult Reason/Comments: Elevated troponin, pulmonary edema Do you want consulting provider notified?: Yes Primary care physician: Stated None Hospital Course: 84-year-old male with a past medical history of CAD with stenting 2 2007, essential hypertension and coronary artery disease who was transferred here to [facility] from [facility] in [facility] after presented there earlier today with chief complaint of lower extremity swelling. Apparently the patient has been having progressive worsening lower extremity swelling in the last 2 weeks noting swelling from his feet up to this ankles and just below his knees, the patient reports some dyspnea on exertion, he denies any chest pain or shortness of breath, he denies any cough subjective fevers chills or night sweats. Serum sodium 140 serum potassium 4.3 serum bicarb 22 creatinine 1.2 WBC 6.34 Hematocrit was 16.1 platelets 184, patient is also noted to have elevated troponin at 0.048. patient was in have elevated blood pressure as high as 167/77 EKG showed sinus tachycardia with PVCs and left atrial enlargement. CXR bibsailar opacities with small pleural effusions. Patient was given a dose of Lasix and transferred here. With regard to his CHF exacerbation, BNP was elevated at 7360. Echocardiogram was done which showed EF 20-25% with hypokinetic left ventricle. He was started on Lasix 40 mg IV twice a day and eventually transitioned to oral on discharge. Patient was noted to have nonsustained VT of 7 beats on telemetry which was evaluated by cardiology. Patient showed considerable improvement while being diuresed with Lasix IV. He was eventually transitioned to Lasix by mouth prior to discharge. He was noted to have elevated troponins of 0.05, 0.06 and 0.051 which was thought to be a troponin leak from CHF. He was continued on his beta selena. He was cleared for discharge from cardiology perspective on 02/15/2019. Assessment and plan Congestive heart failure, EF 20-25% Nonsustained V. tach Metabolic alkalosis CAD with history of LAD stenting in 2007 Troponin elevation likely troponin leak from CHF Acute kidney injury This complex discharge took about 35 minutes to complete. Pertinent Studies: Chest x-ray, echocardiogram Patient Condition at Discharge: Stable Plan - Discharge Summary Discharge Rx Participant: No New Discharge Prescriptions: New Spironolactone [Aldactone] 25 mg PO DAILY #30 tab Aspirin 81 mg PO DAILY #30 chew Furosemide [Lasix] 40 mg PO BID@0900,1600 #60 tab Atorvastatin [Lipitor] 20 mg PO HS #30 tab Metoprolol Succinate (ER) [Toprol XL] 25 mg PO DAILY #30 tab.er.24h Lisinopril [Zestril] 40 mg PO DAILY #30 tab Continue Aspirin EC [Ecotrin Low Dose] 81 mg PO DAILY Discharge Medication List Aspirin EC [Ecotrin Low Dose] 81 mg PO DAILY 02/12/19 [History] Aspirin 81 mg PO DAILY #30 chew 02/15/19 [Rx] Atorvastatin [Lipitor] 20 mg PO HS #30 tab 02/15/19 [Rx] Furosemide [Lasix] 40 mg PO BID@0900,1600 #60 tab 02/15/19 [Rx] Lisinopril [Zestril] 40 mg PO DAILY #30 tab 02/15/19 [Rx] Metoprolol Succinate (ER) [Toprol XL] 25 mg PO DAILY #30 tab.er.24h 02/15/19 [Rx] Spironolactone [Aldactone] 25 mg PO DAILY #30 tab 02/15/19 [Rx] Follow up Appointment(s)/Referral(s): Kana Almaraz MD [STAFF PHYSICIAN] - 03/05/19 3:00 pm (With Latricia ROSSI) None,Stated [Primary Care Provider] - 1-2 days (Please call your insurance for a list of primary care providers in your coverage.) Ambulatory/Diagnostic Orders: Basic Metabolic Panel [LAB.AMB] Time Frame: 3 Days, Location: None Selected Patient Instructions/Handouts: Heart Failure (DC), Heart Healthy Diet (DC) Activity/Diet/Wound Care/Special Instructions: CHF 1. Weigh yourself every morning after you urinate. If you gain 2-3 pounds overnight or 5 pounds in one week, call your primary physician for guidance on your medications. Keep a log of your weights. 2. Avoid salt, or foods with hidden salt. Extra salt makes your heart work harder and traps the fluid in your body for longer. 3. Take all of your medications as directed, especially your water pills. NEVER skip a dose. 4. Elevate your legs when you are not up moving around to help with circulation and prevent swelling. 5. Call your physician if you notice any extra swelling in your legs, ankles, feet or abdomen, if you have a new dry cough, if your shortness of breath worsens with activity or at rest, or if you feel more fatigued. Diet: Heart healthy Follow-up PCP within 3 days of discharge. Follow-up cardiology within 1 week of discharge. Please take all medications as advised. Repeat BMP in 3 days. Discharge Disposition: HOME SELF-CARE
== END 2019-02-15 15:00 | disposition home or self-care (01) | DRG 292 ==
LOC: EC 14:02 → 3SCARD 14:36
PROVIDERS: ADMIT Internal Medicine; ATTEND Internal Medicine
DX: I11.0 Hypertensive heart disease with heart failure (principal); E87.3 Alkalosis; I47.2 Ventricular tachycardia; N17.9 Acute kidney failure, unspecified; I50.23 Acute on chronic systolic (congestive) heart failure; I50.82 Biventricular heart failure; I08.1 Rheumatic disorders of both mitral and tricuspid valves; F03.90 Unspecified dementia, unspecified severity, without behavioral disturbance, psychotic disturbance, mood disturbance, and anxiety; I42.9 Cardiomyopathy, unspecified; E78.5 Hyperlipidemia, unspecified; I16.0 Hypertensive urgency; I25.10 Atherosclerotic heart disease of native coronary artery without angina pectoris; I49.3 Ventricular premature depolarization; T50.1X5A Adverse effect of loop [high-ceiling] diuretics, initial encounter; R79.89 Other specified abnormal findings of blood chemistry; Z85.828 Personal history of other malignant neoplasm of skin; Z95.5 Presence of coronary angioplasty implant and graft; Z79.82 Long term (current) use of aspirin; Z83.79 Family history of other diseases of the digestive system; Z82.0 Family history of epilepsy and other diseases of the nervous system
CPT/HCPCS: 71046; 80048; 80053; 80061; 82550; 82553; 83735; 83880; 84443; 84484; 85025; 93005; 93306; 99285